=== PATIENT | male | born 1950 | race Caucasian/White ===

== ENCOUNTER 2018-07-08 17:22 | Emergency (ER) | payer BC ==
[2018-07-08] MEDS ORDERED: Lidocaine 1%* 5 ML VIAL INJ ONE (18:46)
[2018-07-08 20:03] VITALS: BP 118/77
--- NOTE | 2018-07-08 21:23 | UC ---
Laceration HPI - History Of Current Complaint Chief Complaint: UCUpperExtremity Stated Complaint: FINGER LAC Time Seen by Provider: 07/08/18 19:54 Hx Obtained From: Patient Laceration Location: Finger Mechanism Of Injury: Blunt Trauma Onset/Duration: Sudden Onset, Lasting Hours Severity: Mild Pain Intensity: 1 Aggravating Factors: Position, Movement Hands: 1 - linear laceration 2cm in length, with jagged borders. Related History: Dominant Hand Right - Allergies/Home Medications Allergies/Adverse Reactions: Allergies Allergy/AdvReac Type Severity Reaction Status Date / Time No Known Allergies Allergy Verified 07/08/18 20:03 Home Medications: Home Medications Escitalopram Oxalate [Lexapro] 5 mg PO DAILY 07/08/18 [History Confirmed ] Zolpidem TAB* [Ambien*] 5 mg PO BEDTIME 07/08/18 [History Confirmed 07/08/18] PMH/Surg Hx/FS Hx/Imm Hx Previously Healthy: Yes Psychological History: Depression - Surgical History Surgical History: Yes Surgery Procedure, Year, and Place: hernia repair - Family History Known Family History: Positive: None - Social History Alcohol Use: Daily Substance Use Type: None Smoking Status (MU): Never Smoked Tobacco Review of Systems Skin: Other - laceration All Other Systems Reviewed And Are Negative: Yes Physical Exam Triage Information Reviewed: Yes Appearance: Well-Appearing, No Pain Distress, Well-Nourished Vital Signs: Initial Vital Signs Temp 97.4 F 07/08/18 19:54 Pulse 69 07/08/18 19:54 Resp 16 07/08/18 19:54 BP 118/77 07/08/18 19:54 Pulse Ox 97 07/08/18 19:54 Vital Signs Reviewed: Yes Eyes: Positive: Conjunctiva Clear ENT: Positive: Hearing grossly normal Neck exam: Normal Respiratory: Positive: Chest non-tender Cardiovascular: Positive: Pulses Normal, Brisk Capillary Refill Abdomen Description: Positive: Nontender Musculoskeletal Exam: Normal Musculoskeletal: Positive: Strength Intact, ROM Intact, No Edema Skin Exam: Other - jagged 2cm laceration intertrigo area left index finger on its ventro-lateral aspect Laceration Course/Dx - Course/Dx Course Of Treatment: laceration was repaired with sutures and dermabond, patient tolerated procedure well, Td vaccine is up to date 2 years ago, wound care instructions given to patient, return to in 7 days - Differential Dx - Laceration/Wound Provider Diagnoses: Left index finger laceration Discharge - Sign-Out/Discharge Documenting (check all that apply): Patient Departure - Discharge Plan Condition: Stable Disposition: HOME Patient Education Materials: Care For Your Stitches (ED), Laceration (ED), Skin Adhesive Care (ED) Referrals: Alexandria Monk MD [Primary Care Provider] - - Billing Disposition and Condition Condition: STABLE Disposition: Home
== END 2018-07-08 21:39 | disposition home or self-care (01) ==
LOC: UCEAST 17:22
DX: S61.211A Laceration without foreign body of left index finger without damage to nail, initial encounter (principal); W23.0XXA Caught, crushed, jammed, or pinched between moving objects, initial encounter; Y93.89 Activity, other specified; Y92.9 Unspecified place or not applicable; F32.9 Major depressive disorder, single episode, unspecified
CPT/HCPCS: 12031; 99201; G0463